=== PATIENT | female | born 1975 | race Caucasian/White ===

== ENCOUNTER 2016-07-02 16:29 | Emergency (ER) | payer MEDICARE | END 2016-07-02 20:30 | disposition home or self-care (01) | LOC: D.ER 16:29 | DX: F11.23 Opioid dependence with withdrawal (principal); R11.2 Nausea with vomiting, unspecified; F41.9 Anxiety disorder, unspecified; M25.50 Pain in unspecified joint; M32.9 Systemic lupus erythematosus, unspecified; G40.909 Epilepsy, unspecified, not intractable, without status epilepticus ==

== ENCOUNTER 2016-12-02 08:04 | Emergency (ER) | payer MEDICARE ==
[2016-12-02 08:41] LABS: BASOPHILS 0.2 % (0-2); EOSINOPHILS 0.5 % (0-7); HEMATOCRIT 51.7 % (36.0-48.0); HEMOGLOBIN 17.6 g/dL (12-16); IMMATURE GRANULOCYTES 0.4 % (0-5); LYMPHOCYTES 21.3 % (15-50); MCH 28.5 pg (26.0-34.0); MCV 83.7 fL (80.0-100.0); MEAN PLATELET VOLUME 10.4 fL (7.4-10.4); MONOCYTES 5.1 % (2-11); NEUTROPHILS 72.5 % (40-80); PLATELET COUNT 432 10x3/uL (130-400); RBC 6.18 10x6/uL (4.00-5.40); RDW 13.1 % (11.5-14.5); WBC 16.9 10x3/uL (4.8-10.8)
[2016-12-02 08:45] LABS: HCG URINE NEGATIVE (NEGATIVE)
[2016-12-02 08:46] LABS: APPEARANCE CLEAR (CLEAR); BILIRUBIN NEGATIVE (NEGATIVE); COLOR STRAW (YELLOW); GLUCOSE NEGATIVE (NEGATIVE); KETONE NEGATIVE (NEGATIVE); LEUKOCYTE ESTERASE NEGATIVE (NEGATIVE); NITRITE NEGATIVE (NEGATIVE); PROTEIN TRACE mg/dL (NEGATIVE); SPECIFIC GRAVITY 1.005 (1.005-1.020); UROBILINOGEN NORMAL (NORMAL)
[2016-12-02 08:48] LABS: CALCIUM 9.9 mg/dL (8.5-10.1)
[2016-12-02 08:49] LABS: UDS - AMPHET NEGATIVE QUAL (NEGATIVE); UDS - BARB NEGATIVE QUAL (NEGATIVE); UDS - BENZO NEGATIVE QUAL (NEGATIVE); UDS - COCAINE NEGATIVE QUAL (NEGATIVE); UDS - METH NEGATIVE QUAL (NEGATIVE); UDS - OPIATE NEGATIVE QUAL (NEGATIVE); UDS - PCP NEGATIVE QUAL (NEGATIVE); UDS - THC NEGATIVE QUAL (NEGATIVE)
== END 2016-12-02 11:57 | disposition short-term general hospital (02) ==
LOC: D.ER 08:04
PROVIDERS: Family Medicine
DX: F41.9 Anxiety disorder, unspecified (principal); F41.0 Panic disorder [episodic paroxysmal anxiety]; M32.9 Systemic lupus erythematosus, unspecified; G40.909 Epilepsy, unspecified, not intractable, without status epilepticus; R45.1 Restlessness and agitation; R44.3 Hallucinations, unspecified; G47.9 Sleep disorder, unspecified; R45.851 Suicidal ideations; F12.90 Cannabis use, unspecified, uncomplicated

== ENCOUNTER 2017-01-11 13:01 | Emergency (ER) | payer MEDICARE ==
[2017-01-11 14:07] LABS: BASOPHILS 0.3 % (0-2); EOSINOPHILS 0.7 % (0-7); HEMATOCRIT 42.4 % (36.0-48.0); HEMOGLOBIN 14.2 g/dL (12-16); IMMATURE GRANULOCYTES 0.3 % (0-5); LYMPHOCYTES 24.4 % (15-50); MCH 28.3 pg (26.0-34.0); MCHC 33.5 g/dL (31.0-37.0); MCV 84.6 fL (80.0-100.0); MEAN PLATELET VOLUME 10.2 fL (7.4-10.4); MONOCYTES 6.3 % (2-11); PLATELET COUNT 358 10x3/uL (130-400); RBC 5.01 10x6/uL (4.00-5.40); RDW 15.1 % (11.5-14.5); WBC 14.7 10x3/uL (4.8-10.8)
[2017-01-11 14:17] LABS: APPEARANCE HAZY (CLEAR); BACTERIA MANY /hpf (NONE SEEN); BILIRUBIN NEGATIVE (NEGATIVE); COLOR YELLOW (YELLOW); GLUCOSE NEGATIVE (NEGATIVE); KETONE MODERATE mg/dL (NEGATIVE); LEUKOCYTE ESTERASE 2+ (NEGATIVE); MUCUS <1+ /lpf (NONE SEEN); NITRITE NEGATIVE (NEGATIVE); PROTEIN TRACE mg/dL (NEGATIVE); RED CELLS - URINE OCC /hpf (0-5); SPECIFIC GRAVITY 1.025 (1.005-1.020)
[2017-01-11 14:38] LABS: UDS - AMPHET NEGATIVE QUAL (NEGATIVE); UDS - BARB NEGATIVE QUAL (NEGATIVE); UDS - BENZO NEGATIVE QUAL (NEGATIVE); UDS - COCAINE NEGATIVE QUAL (NEGATIVE); UDS - METH NEGATIVE QUAL (NEGATIVE); UDS - OPIATE NEGATIVE QUAL (NEGATIVE); UDS - PCP NEGATIVE QUAL (NEGATIVE); UDS - THC POSITIVE QUAL (NEGATIVE)
[2017-01-11 14:38] LABS: ALBUMIN 3.8 g/dL (3.4-5.0); ALKALINE PHOSPHATASE 77 U/L (46-116); ALT (SGPT) 42 U/L (10-68); CALC OSMOLALITY 277 mosm/kg (275-300); CALCIUM 9.4 mg/dL (8.5-10.1); CARBON DIOXIDE 26.3 mmol/L (21.0-32.0); CHLORIDE - SERUM 100 mmol/L (98-107); CREATININE - SERUM 0.8 mg/dL (0.6-1.3); GLUCOSE 109 mg/dL (74-106); PROTEIN - SERUM 8.8 g/dL (6.4-8.2); SODIUM 140 mmol/L (136-145); UREA NITROGEN 8 mg/dL (7-18); eGFR NON AFRICAN AMERICAN 84 mL/min (90-120)
[2017-01-11 14:53] LABS: POTASSIUM - SERUM 2.9 mmol/L (3.5-5.1)
== END 2017-01-11 17:59 | disposition short-term general hospital (02) ==
LOC: D.ER 13:01
PROVIDERS: Emergency Medicine
DX: F23 Brief psychotic disorder (principal); F17.200 Nicotine dependence, unspecified, uncomplicated

== ENCOUNTER 2017-06-21 20:15 | Emergency (ER) | payer MEDICARE | END 2017-06-21 22:31 | disposition home or self-care (01) | LOC: D.ER 20:15 | DX: H66.91 Otitis media, unspecified, right ear (principal); H92.01 Otalgia, right ear ==

== ENCOUNTER 2018-03-25 12:05 | Emergency (ER) | payer MEDICARE ==
[~2018-03-25] VITALS: Ht 170.2 cm; Wt 102.1 kg
[2018-03-25 12:21] VITALS: BP 132/098; Ht 170.2 cm; Wt 102.1 kg
[2018-03-25] MEDS ORDERED: TOPAMAX200 MG PO (12:25)
[2018-03-25] MEDS ORDERED: ZANAFLEX4 MG PO (12:25)
[2018-03-25] MEDS ORDERED: CATAPRES0.1 MG PO (12:26)
[2018-03-25] MEDS ORDERED: ZESTRIL40 MG PO (12:26)
[2018-03-25] MEDS ORDERED: SYNTHROID112 MCG PO (12:26)
[2018-03-25] MEDS ORDERED: HALDOL5 MG PO (12:27)
[2018-03-25] MEDS ORDERED: TORADOL10 MG PO (13:56)
== END 2018-03-25 14:32 | disposition home or self-care (01) ==
LOC: D.ER 12:05
DX: S69.92XA Unspecified injury of left wrist, hand and finger(s), initial encounter (principal); W18.30XA Fall on same level, unspecified, initial encounter; Y93.89 Activity, other specified; Y92.019 Unspecified place in single-family (private) house as the place of occurrence of the external cause; G40.909 Epilepsy, unspecified, not intractable, without status epilepticus; M32.9 Systemic lupus erythematosus, unspecified; F17.200 Nicotine dependence, unspecified, uncomplicated

== ENCOUNTER 2018-11-11 04:52 | Emergency (ER) | payer MEDICARE ==
[~2018-11-11] VITALS: Ht 170.2 cm; Wt 120.5 kg
[~2018-11-11 04:52] MED LIST: CATAPRES0.1 MG PO; HALDOL5 MG PO; SYNTHROID112 MCG PO; TOPAMAX200 MG PO; TORADOL10 MG PO; ZANAFLEX4 MG PO; ZESTRIL40 MG PO
[2018-11-11 04:58] VITALS: Ht 170.2 cm; Wt 120.5 kg
--- NOTE | 2018-11-11 05:28 | NUR ---
DR CARBAJAL NOTIFIED AND REVIEWED PT BEHAVIOR AND ASSESSMENT RESULTS. PT IS A LOW RISK PER DOCTOR CARBAJAL. DR CARBAJAL STATED TO GIVE RESOURCES TO PT AT TIME OF DISCHARGE. NO FURUTHER ORDERS AT THIS TIME. RESOURCES REVIEWED WITH PT AND SHE VERBALIZED UNDERSTANDING.
[2018-11-11] MEDS ORDERED: CLEOCIN HCL300 MG PO (05:42)
[2018-11-11] MEDS ORDERED: TORADOL10 MG PO (05:42)
[2018-11-11 06:14] VITALS: BP 145/99
== END 2018-11-11 06:21 | disposition home or self-care (01) ==
LOC: D.ER 04:52
DX: K04.7 Periapical abscess without sinus (principal); K02.9 Dental caries, unspecified

== ENCOUNTER 2020-01-12 09:43 | Inpatient (IN) | payer MEDICARE ==
[~2020-01-12] VITALS: Ht 167.6 cm; Wt 133.0 kg
--- NOTE | ~2020-01-12 | OP ---
PATIENT NAME: PAN CRUZ MEDICAL RECORD: [id number] :77 LOCATION:[facility] ADMISSION DATE:01/12/20 SURGEON: SORAYA SUMMERS MD DATE OF OPERATION: 01/13/2020 PREOPERATIVE DIAGNOSIS: Abscess of the abdominal wall (left side of the panniculus). POSTOPERATIVE DIAGNOSIS: Abscess of the abdominal wall (left side of the panniculus). Please see dimensions below. PROCEDURES: Excisional debridement of abdominal wall abscess. This abscess was completely extraperitoneal. The debridement was a sharp debridement back to viable bleeding tissue. The dimensions of the debridement, including margins, measured 4.2 cm x 4.1 cm. The depths of the wound was 3.0 cm. The debridement tissues included skin and subcutaneous tissue as well as abscess cavity. Marsupialization of the wound. SURGEON: Soraya Summers MD POWDER COAT PAINTER: None. BLOOD LOSS: 30 cc. ANESTHESIA: General. COMPLICATIONS: None. The risks, possible complications and alternatives to the procedure were explained to the patient. She elects to proceed. OPERATIVE COURSE: The patient was conveyed to the operating room electively on 01/13/2020. General anesthesia was induced by the anesthesia staff. The abdomen was sterilely prepped and draped. A roughly circular incision was accomplished around the previous incision and drainage site. This incision and drainage had been performed in the Emergency Room and the site was packed. I excised all of the indurated and infected material in a piecemeal fashion. I excised back to viable bleeding tissue. Hemostasis was achieved with electrocautery. I irrigated the wound with hydrogen peroxide. Dimensions were obtained. I then marsupialized the wound with a running locking 3-0 Vicryl Rapide suture. I then packed the wound with a Dakin-soaked Kerlixes. The 2 Kerlixes were tied together. A sterile dressing was applied. The patient was then extubated and conveyed to post-anesthesia care unit where she was in stable condition. The patient's packing will come out on Saturday. Today is Saturday. I will plan that she will be dismissed home on Saturday on oral antibiotics as well. Hopefully, packings will not need to be performed once she is dismissed home. TRANSINT:[id number] Voice Confirmation ID: [id number] DOCUMENT ID: [id number] OPERATIVE REPORT [id number] PAN CRUZ ROBERT MD CC: JENNIE BACA MD [phone] DICTATION DATE: 01/13/20 105 SPACE AND MISSILE OPERATIONS: 01/13/20 1242 ADM IN [place] [id number] [place] [id number]
--- NOTE | 2020-01-12 08:45 | NUR ---
I have reviewed this patient and I concur with the Shift Assessment completed by the Licensed Practical Nurse today this shift.
[~2020-01-12 09:43] MED LIST changes: +CLEOCIN HCL300 MG PO
[2020-01-12] MEDS ORDERED: KLONOPIN1 MG PO (10:05)
[2020-01-12] MEDS ORDERED: ABILIFY10 MG PO (10:05)
[2020-01-12] MEDS ORDERED: NEURONTIN800 MG PO (10:06)
[2020-01-12 10:43] LABS: BASOPHILS 0.1 % (0-2); EOSINOPHILS 1.9 % (0-7); HEMATOCRIT 46.4 % (36.0-48.0); IMMATURE GRANULOCYTES 0.6 % (0-5); LYMPHOCYTES 16.5 % (15-50); MCH 28.2 pg (26.0-34.0); MCHC 32.3 g/dL (31.0-37.0); MCV 87.4 fL (80.0-100.0); MEAN PLATELET VOLUME 9.5 fL (7.4-10.4); MONOCYTES 4.3 % (2-11); NEUTROPHILS 76.6 % (40-80); PLATELET COUNT 302 10x3/uL (130-400); RBC 5.31 10x6/uL (4.00-5.40); RDW 13.6 % (11.5-14.5); WBC 14.5 10x3/uL (4.8-10.8)
[2020-01-12 10:55] LABS: ANION GAP 15.7 mmol/L (8-16); CALCIUM 9.2 mg/dL (8.5-10.1); CARBON DIOXIDE 26.1 mmol/L (21.0-32.0); CREATININE - SERUM 0.9 mg/dL (0.6-1.3); POTASSIUM - SERUM 3.8 mmol/L (3.5-5.1)
--- NOTE | 2020-01-12 12:14 | NUR ---
COVID-19 SWAB OBTAINED AND SENT TO THE LAB. WOUND CULTURE FROM [facility] ABD ABSCESS SENT TO THE LAB.
[2020-01-12 12:15] VITALS: BP 115/77
--- NOTE | 2020-01-12 12:24 | NUR ---
I have reviewed this patient and I concur with the Shift Assessment completed by the Licensed Practical Nurse today this shift.
[2020-01-12 13:17] VITALS: BP 126/79
[2020-01-12 14:12] VITALS: BP 117/84
[2020-01-12 17:06] VITALS: BP 142/81
[2020-01-12 17:25] LABS: APTT 26.8 SECONDS (22.8-39.4); INR 0.91 (0.85-1.17); PROTIME 12.3 SECONDS (11.6-15.0)
[2020-01-12 20:00] VITALS: BP 135/80
--- NOTE | 2020-01-12 21:00 | NUR ---
A&O X 4. AMBULATES INDEPENDENTLY. CONSENTS SIGNED AND IN CHART. HIBICLENS PERFORMED. EKG PERFORMED- READS ABNORMAL. DRESSING TO LEFT LOWER ABDOMEN FALLING OFF. SEROUS SANGUINEOUS NOTED. SKIN SURROUNDING PACKED ABCESS IS RED. REDRESSED WITH ABD PAD. NO FURTHER NEEDS NOTED, CTM
[2020-01-12 23:10] LABS: BILIRUBIN NEGATIVE (NEGATIVE); KETONE NEGATIVE (NEGATIVE); NITRITE NEGATIVE (NEGATIVE); UROBILINOGEN NORMAL (NORMAL)
--- NOTE | 2020-01-12 23:50 | NUR ---
I have reviewed this patient and I concur with the Shift Assessment completed by the Licensed Practical Nurse today this shift.
[2020-01-13] VITALS: BP 125/80
[2020-01-13 04:00] VITALS: BP 131/81
[2020-01-13 05:03] LABS: BASOPHILS 0.2 % (0-2); EOSINOPHILS 2.7 % (0-7); HEMATOCRIT 44.6 % (36.0-48.0); HEMOGLOBIN 14.1 g/dL (12-16); IMMATURE GRANULOCYTES 0.4 % (0-5); LYMPHOCYTES 21.8 % (15-50); MCHC 31.6 g/dL (31.0-37.0); MCV 88.7 fL (80.0-100.0); MEAN PLATELET VOLUME 9.6 fL (7.4-10.4); MONOCYTES 5.5 % (2-11); NEUTROPHILS 69.4 % (40-80); PLATELET COUNT 292 10x3/uL (130-400); RBC 5.03 10x6/uL (4.00-5.40); RDW 13.9 % (11.5-14.5)
[2020-01-13 05:20] LABS: WBC 10.8 10x3/uL (4.8-10.8)
[2020-01-13 05:25] LABS: ALBUMIN 3.2 g/dL (3.4-5.0); ALKALINE PHOSPHATASE 114 U/L (30-120); ALT (SGPT) 42 U/L (10-68); BILIRUBIN - TOTAL 0.31 mg/dL (0.2-1.3); CALC OSMOLALITY 277 mosm/kg (275-300); CALCIUM 9.1 mg/dL (8.5-10.1); CARBON DIOXIDE 30.4 mmol/L (21.0-32.0); CHLORIDE - SERUM 101 mmol/L (98-107); CREATININE - SERUM 0.8 mg/dL (0.6-1.3); GLUCOSE 116 mg/dL (74-106); MAGNESIUM - SERUM 2.2 mg/dL (1.8-2.4); POTASSIUM - SERUM 3.9 mmol/L (3.5-5.1); PROTEIN - SERUM 7.6 g/dL (6.4-8.2); SODIUM 139 mmol/L (136-145); eGFR NON AFRICAN AMERICAN 83 mL/min (90-120)
[2020-01-13 05:31] LABS: UREA NITROGEN 11 mg/dL (7-18)
[2020-01-13 09:36] VITALS: BP 141/95
[2020-01-13 11:44] VITALS: BP 99/63
[2020-01-13 13:05] VITALS: Ht 167.6 cm; Wt 133.0 kg
--- NOTE | 2020-01-13 18:01 | NUR ---
I have reviewed this patient and I concur with the Shift Assessment completed by the Licensed Practical Nurse today this shift.
[2020-01-13 18:21] VITALS: BP 132/68
[2020-01-13 20:00] VITALS: BP 110/73
[2020-01-14] VITALS: BP 105/69
[2020-01-14 04:00] VITALS: BP 135/73
[2020-01-14 05:50] LABS: BASOPHILS 0.1 % (0-2); EOSINOPHILS 0.1 % (0-7); HEMATOCRIT 42.9 % (36.0-48.0); HEMOGLOBIN 13.5 g/dL (12-16); IMMATURE GRANULOCYTES 0.5 % (0-5); LYMPHOCYTES 12.1 % (15-50); MCH 28.4 pg (26.0-34.0); MCHC 31.5 g/dL (31.0-37.0); MCV 90.1 fL (80.0-100.0); MEAN PLATELET VOLUME 9.7 fL (7.4-10.4); MONOCYTES 3.9 % (2-11); NEUTROPHILS 83.3 % (40-80); PLATELET COUNT 331 10x3/uL (130-400); RBC 4.76 10x6/uL (4.00-5.40); RDW 13.7 % (11.5-14.5)
[2020-01-14 06:14] LABS: WBC 16.1 10x3/uL (4.8-10.8)
[2020-01-14 06:31] LABS: ALBUMIN 3.1 g/dL (3.4-5.0); ALKALINE PHOSPHATASE 150 U/L (30-120); BILIRUBIN - TOTAL 0.16 mg/dL (0.2-1.3); CALC OSMOLALITY 280 mosm/kg (275-300); CALCIUM 8.9 mg/dL (8.5-10.1); CARBON DIOXIDE 28.1 mmol/L (21.0-32.0); CHLORIDE - SERUM 102 mmol/L (98-107); CREATININE - SERUM 0.8 mg/dL (0.6-1.3); GLUCOSE 146 mg/dL (74-106); MAGNESIUM - SERUM 2.2 mg/dL (1.8-2.4); POTASSIUM - SERUM 4.3 mmol/L (3.5-5.1); PROTEIN - SERUM 7.3 g/dL (6.4-8.2); SODIUM 139 mmol/L (136-145); UREA NITROGEN 13 mg/dL (7-18); eGFR NON AFRICAN AMERICAN 83 mL/min (90-120)
[2020-01-14 06:33] LABS: ALT (SGPT) 78 U/L (10-68)
[2020-01-14 08:41] VITALS: BP 109/80
--- NOTE | 2020-01-14 10:54 | NUR ---
I have reviewed this patient and I concur with the Shift Assessment completed by the Licensed Practical Nurse today this shift.
[2020-01-14 17:59] VITALS: BP 126/70
[2020-01-14 20:00] VITALS: BP 112/65
--- NOTE | 2020-01-14 21:46 | NUR ---
PT C/O LEFT FOREARM IV TENDER AND BURNING. REMOVED IV CATHETER IN TACT. 22 G IV RESITED TO LEFT FOREARM BY JOAN RAMOS. RESUMED IV FLUIDS AND HUNG VANCOMYCIN. DRESSING TO [facility] C/D/I. CARDIOLOGY TECH FOR PAIN CONTROL. NO OTHER NEEDS. WILL REASSESS AND CONTINUE TO MONITOR.
[2020-01-14 23:42] VITALS: BP 113/65
[2020-01-15 05:22] LABS: BASOPHILS 0.4 % (0-2); EOSINOPHILS 0.9 % (0-7); HEMATOCRIT 42.8 % (36.0-48.0); HEMOGLOBIN 13.1 g/dL (12-16); IMMATURE GRANULOCYTES 0.7 % (0-5); MCH 27.7 pg (26.0-34.0); MCHC 30.6 g/dL (31.0-37.0); MCV 90.5 fL (80.0-100.0); MEAN PLATELET VOLUME 9.4 fL (7.4-10.4); MONOCYTES 5.2 % (2-11); NEUTROPHILS 61.8 % (40-80); PLATELET COUNT 296 10x3/uL (130-400); RBC 4.73 10x6/uL (4.00-5.40); RDW 13.9 % (11.5-14.5); WBC 11.5 10x3/uL (4.8-10.8)
[2020-01-15 05:34] LABS: ALBUMIN 3.1 g/dL (3.4-5.0); ALKALINE PHOSPHATASE 114 U/L (30-120); BILIRUBIN - TOTAL 0.25 mg/dL (0.2-1.3); CALC OSMOLALITY 278 mosm/kg (275-300); CALCIUM 8.7 mg/dL (8.5-10.1); CARBON DIOXIDE 30.3 mmol/L (21.0-32.0); CHLORIDE - SERUM 103 mmol/L (98-107); CREATININE - SERUM 0.8 mg/dL (0.6-1.3); GLUCOSE 114 mg/dL (74-106); POTASSIUM - SERUM 4.1 mmol/L (3.5-5.1); PROTEIN - SERUM 7.1 g/dL (6.4-8.2); SODIUM 139 mmol/L (136-145); UREA NITROGEN 12 mg/dL (7-18); eGFR NON AFRICAN AMERICAN 83 mL/min (90-120)
[2020-01-15 05:41] LABS: ALT (SGPT) 55 U/L (10-68)
--- NOTE | 2020-01-15 08:27 | MORECARE ---
CASE MANAGEMENT DISCHARGE SUMMARY PATIENT: PAN CRUZ UNIT: [id number] ADM DATE: 01/12/20 AGE: 44 : [birth year] SEX: F ROOM/BED: D.2205 AUTHOR: EBONY RUELAS PHYSICIAN: REFERRING PHYSICIAN: JENNIE BACA MD DATE OF SERVICE: 01/15/20 Discharge Plan Patient Name: PAN CRUZ Facility: [facility]:[place] : 1975 Planned Disposition: Home with Home Health Anticipated Discharge Date: Discharge Date: Expected LOS: Initial Reviewer: [email or web address] Initial Review Date: 01/12/2020 Generated: 01/15/20 9:26 am DCPIA - Discharge Planning Initial Assessment Updated by [email or web address]: Gayathri Barbosa on 01/15/20 8:24 am * Is the patient Alert and Oriented? Yes * How many steps to enter\exit or inside your home? * PCP ANDER * Pharmacy [facility] * Preadmission Environment Home with Family * ADLs Independent * Equipment None * List name and contact numbers for known caregivers / representatives who currently or will assist patient after discharge: ERYN WARE ([place]) [phone] * Verbal permission to speak to the caregivers and representatives has been obtained from the patient. N/A * Community resources currently utilized None * Additional services required to return to the preadmission environment? Yes * Can the patient safely return to the preadmission environment? Yes * Has this patient been hospitalized within the prior 30 days at any hospital? No Patient Name: PAN CRUZ Page [id number] at 0827 All edits/amendments must be made on the electronic document DICTATION DATE: 01/15/20825 APARTMENT MAINTENANCE: J CARLOS 01/15/20825 RPT#: [id number] DC DATE: STATUS: ADM IN [facility] [address] [place] [address] END OF REPORT
--- NOTE | 2020-01-15 08:33 | MORECARE ---
CASE MANAGEMENT DISCHARGE SUMMARY PATIENT: PAN CRUZ UNIT: [id number] ADM DATE: 01/12/20 AGE: 44 : 77 SEX: F ROOM/BED: D.220 AUTHOR: SURAJ,DOC PHYSICIAN: REFERRING PHYSICIAN: JENNIE BACA MD DATE OF SERVICE: 01/15/20 Discharge Plan Patient Name: PAN CRUZ Facility: [facility]:[place] : 1975 Planned Disposition: Home with Home Health Anticipated Discharge Date: Discharge Date: Expected LOS: Initial Reviewer: [email or web address] Initial Review Date: 01/12/2020 Generated: 01/15/20 9:32 am Comments DCP- Discharge Planning Updated by [email or web address]: Gayathri Barbosa on 01/15/20 7:[address] Patient Name: PAN CRUZ Admission Status: ER Accout number: [id number] Admission Date: 01-12-2020 : 1975 Admission Diagnosis:CUTANEOUS ABSCESS OF ABDOMINAL WALL Attending: ANA Current LOS: 3 Anticipated DC Date: Planned Disposition: Home with Home Health Primary Insurance: [employer] CHOICE PPO [facility] Discharge Planning Comments: CM met with patient to complete initial dc planning assessment. CM educated patient on the CM role and verbal consent given by patient to complete assessment. Patient lives at home with a roommate where she states she is independent with her care. At discharge patient plans to return home and feels this is a safe discharge. CM discussed availability of home health, rehab services, and medical equipment. She does not use any DME, she will need home health. SUE with [facility] . She stated that her roommate will help her with her dressing and will also be the one to drive her home. IMM served and signed. Patient denied known discharge needs at this time. CM will continue to follow and will assist as needed with dc plans/needs. Branch Manager Trainee: Gayathri Barbosa DCPIA - Discharge Planning Initial Assessment Updated by [email or web address]: Gayathri Barbosa on 01/15/20 8:24 am * Is the patient Alert and Oriented? Yes * How many steps to enter\exit or inside your home? * PCP ANDER * Pharmacy [facility] * Preadmission Environment Home with Family * ADLs Independent * Equipment None * List name and contact numbers for known caregivers / representatives who currently or will assist patient after discharge: ERYN WAER ([place]) [phone] * Verbal permission to speak to the caregivers and representatives has been obtained from the patient. N/A * Community resources currently utilized None * Additional services required to return to the preadmission environment? Yes * Can the patient safely return to the preadmission environment? Yes * Has this patient been hospitalized within the prior 30 days at any hospital? No Coverage Notice Reviewer: [id number] Barbosa Notice Issued Date-Time: 01/15/2020 7:30 Notice Type: IM Discharge Notice Notice Delivered To: Patient Relationship to Patient: Pillowcase Maker Name: Delivery Method: HAND - Hand Delivered Becca Days: Prior Verbal Notification: Recipient Understood Notice: Yes Recipient Signature: Yes Med Rec Note Co-signed by Attending: Coverage Notice Comment: Reviewer: [id number] Barbosa Notice Issued Date-Time: 01/15/2020 7:30 Notice Type: Patient Choice Letter Notice Delivered To: Patient Relationship to Patient: Pillowcase Maker Name: Delivery Method: HAND - Hand Delivered Becca Days: Prior Verbal Notification: Recipient Understood Notice: Yes Recipient Signature: Yes Med Rec Note Co-signed by Attending: Coverage Notice Comment: sue with [employer] [facility] Last DP export: 01/15/20 7:27 a Patient Name: PAN CRUZ Page [phone] at 0833 All edits/amendments must be made on the electronic document DICTATION DATE: 01/15/20 08 STRIKER OUT: J CARLOS 01/15/20 0833 RPT#: [id number] DC DATE: STATUS: ADM IN [facility] [address] [place] [address] END OF REPORT
--- NOTE | 2020-01-15 08:47 | MORECARE ---
CASE MANAGEMENT DISCHARGE SUMMARY PATIENT: PAN CRUZ UNIT: [id number] ADM DATE: 01/12/20 AGE: 44 : 77 SEX: F ROOM/BED: D.2202 AUTHOR: SURAJ,DOC PHYSICIAN: REFERRING PHYSICIAN: JENNIE BACA MD DATE OF SERVICE: 01/15/20 Discharge Plan Patient Name: PAN CRUZ Facility: [facility]:[place] : 1975 Planned Disposition: Home with Home Health Anticipated Discharge Date: Discharge Date: Expected LOS: Initial Reviewer: [email or web address] Initial Review Date: 01/12/2020 Generated: 01/15/20 9:46 am Comments DCP- Discharge Planning Updated by [email or web address]: Gayathri Barbosa on 01/15/20 7:[address] REFERRAL FAXED TO [facility] AND I SPOKE WITH RAY DCP- Discharge Planning Updated by [email or web address]: Gayathri Barbosa on 01/15/20 7:[address] Patient Name: PAN CRUZ Admission Status: ER Accout number: [id number] Admission Date: 01-12-2020 : 1975 Admission Diagnosis:CUTANEOUS ABSCESS OF ABDOMINAL WALL Attending: ANA Current LOS: 3 Anticipated DC Date: Planned Disposition: Home with Home Health Primary Insurance: [employer] CHOICE PPO [employer] Discharge Planning Comments: CM met with patient to complete initial dc planning assessment. CM educated patient on the CM role and verbal consent given by patient to complete assessment. Patient lives at home with a roommate where she states she is independent with her care. At discharge patient plans to return home and feels this is a safe discharge. CM discussed availability of home health, rehab services, and medical equipment. She does not use any DME, she will need home health. SUE with [facility]. She stated that her roommate will help her with her dressing and will also be the one to drive her home. IMM served and signed. Patient denied known discharge needs at this time. CM will continue to follow and will assist as needed with dc plans/needs. Retail Salesman: Gayathri Barbosa DCPIA - Discharge Planning Initial Assessment Updated by [email or web address]: Gayathri Barbosa on 01/15/20 8:24 am * Is the patient Alert and Oriented? Yes * How many steps to enter\exit or inside your home? * PCP ANDER * Pharmacy [facility] * Preadmission Environment Home with Family * ADLs Independent * Equipment None * List name and contact numbers for known caregivers / representatives who currently or will assist patient after discharge: ERYN WARE ([place]) [phone] * Verbal permission to speak to the caregivers and representatives has been obtained from the patient. N/A * Community resources currently utilized None * Additional services required to return to the preadmission environment? Yes * Can the patient safely return to the preadmission environment? Yes * Has this patient been hospitalized within the prior 30 days at any hospital? No External Providers External Provider: [employer] Next Contact Date: Service Request Date: Service Type: Resolution: Reviewer: Comments: Coverage Notice Reviewer: [id number] Prosper Barbosa Notice Issued Date-Time: 01/15/2020 7:30 Notice Type: IM Discharge Notice Notice Delivered To: Patient Relationship to Patient: Clinical Data Assistant Name: Delivery Method: HAND - Hand Delivered Becca Days: Prior Verbal Notification: Recipient Understood Notice: Yes Recipient Signature: Yes Med Rec Note Co-signed by Attending: Coverage Notice Comment: Reviewer: [email or web address] Prosper Barbosa Notice Issued Date-Time: 01/15/2020 7:30 Notice Type: Patient Choice Letter Notice Delivered To: Patient Relationship to Patient: Clinical Data Assistant Name: Delivery Method: HAND - Hand Delivered Becca Days: Prior Verbal Notification: Recipient Understood Notice: Yes Recipient Signature: Yes Med Rec Note Co-signed by Attending: Coverage Notice Comment: sue with [employer] Last DP export: 01/15/20 7:33 a Patient Name: PAN CRUZ Page 14584 at 0847 All edits/amendments must be made on the electronic document DICTATION DATE: 01/15/20845 REGISTER IN CHANCERY: J CARLOS 01/15/20845 RPT#: [id number] DC DATE: STATUS: ADM IN [facility] [address] [place] [address] END OF REPORT
[2020-01-15 09:07] VITALS: BP 125/80
--- NOTE | 2020-01-15 09:54 | NUR ---
NUTRITION F/U CHART REVIEWED. PT TOLERATING AHA DIET WITH GOOD INTAKE MEALS. WILL CONTINUE TO PROVIDE CURRENT DIET AND MONITOR PO INTAKE. RD FOLLOWING
[2020-01-15 12:31] VITALS: BP 118/63
--- NOTE | 2020-01-15 12:39 | NUR ---
CALL WAS PLACED TO DR. SUMMERS ABOUT CONTINUING PT HAIR CUTTER. REC'D ORDERS TO DC HAIR CUTTER AND START ON NORCO 10 MG EVERY 4 HOURS. C/L IN REACH AT BEDSIDE.
--- NOTE | 2020-01-15 13:30 | NUR ---
DRESSING WAS CHANGED BY [facility] AT THIS TIME. PT TOLERATED WELL. N C/O NOTED OR VOICED. C/L IN REACH AT BEDSIDE.
[2020-01-15] MEDS ORDERED: VIBRAMYCIN 100100 MG PO (14:43)
[2020-01-15] MEDS ORDERED: ULTRAM50 MG PO (14:44)
--- NOTE | 2020-01-15 15:30 | MORECARE ---
CASE MANAGEMENT DISCHARGE SUMMARY PATIENT: PAN CRUZ UNIT: [id number] ADM DATE: 01/12/20 AGE: 44 : 77 SEX: F ROOM/BED: D.2205 AUTHOR: SURAJ,DOC PHYSICIAN: REFERRING PHYSICIAN: JENNIE BACA MD DATE OF SERVICE: 01/15/20 Discharge Plan Patient Name: PAN CRUZ Facility: [facility]:[place] : 1975 Planned Disposition: Home with Home Health Anticipated Discharge Date: Discharge Date: Expected LOS: Initial Reviewer: [email or web address] Initial Review Date: 01/12/2020 Generated: 01/15/20 4:29 pm Comments DCP- Discharge Planning Updated by [email or web address]: Gayathri Barbosa on 01/15/20 2:[address] PATIENT WILL BE DISCHARGING HOME WITH [employer] [facility] TODAY, DR SUMMERS TAUGHT HER WHAT AND HHOW TO DO WOUND CARE AND STATED IT WAS OK FOR HOME HEALTH TO SEE HER ON SATURDAY I HAVE LET RAY KNOW THIS. NURSING WILL SUPPLY HER WITH SOME SUPPLIES TILL CAN SEE HER CM TO FOLLOW NEEDED DCP- Discharge Planning Updated by [email or web address]: Gayathri Barbosa on 01/15/20 7:[address] REFERRAL FAXED TO [employer] [facility] AND I SPOKE WITH RAY DCP- Discharge Planning Updated by [email or web address]: Gayathri Barbosa on 01/15/20 7:[address] Patient Name: PAN CRUZ Admission Status: ER Accout number: [id number] Admission Date: 01-12-2020 : 1975 Admission Diagnosis:CUTANEOUS ABSCESS OF ABDOMINAL WALL Attending: ANA Current LOS: 3 Anticipated DC Date: Planned Disposition: Home with Home Health Primary Insurance: [employer] CHOICE PPO [employer] Discharge Planning Comments: CM met with patient to complete initial dc planning assessment. CM educated patient on the CM role and verbal consent given by patient to complete assessment. Patient lives at home with a roommate where she states she is independent with her care. At discharge patient plans to return home and feels this is a safe discharge. CM discussed availability of home health, rehab services, and medical equipment. She does not use any DME, she will need home health. SUE with [facility] . She stated that her roommate will help her with her dressing and will also be the one to drive her home. IMM served and signed. Patient denied known discharge needs at this time. CM will continue to follow and will assist as needed with dc plans/needs. Metal Expediter: Gayathri Barbosa DCPIA - Discharge Planning Initial Assessment Updated by [email or web address]: Gayathri Barbosa on 01/15/20 8:24 am * Is the patient Alert and Oriented? Yes * How many steps to enter\exit or inside your home? * PCP ANDER * Pharmacy [facility] * Preadmission Environment Home with Family * ADLs Independent * Equipment None * List name and contact numbers for known caregivers / representatives who currently or will assist patient after discharge: ERYN WARE ([place]) [phone] * Verbal permission to speak to the caregivers and representatives has been obtained from the patient. N/A * Community resources currently utilized None * Additional services required to return to the preadmission environment? Yes * Can the patient safely return to the preadmission environment? Yes * Has this patient been hospitalized within the prior 30 days at any hospital? No Coverage Notice Reviewer: [id number] Prosper Barbosa Notice Issued Date-Time: 01/15/2020 7:30 Notice Type: IM Discharge Notice Notice Delivered To: Patient Relationship to Patient: Keyboard Action Assembler Name: Delivery Method: HAND - Hand Delivered Becca Days: Prior Verbal Notification: Recipient Understood Notice: Yes Recipient Signature: Yes Med Rec Note Co-signed by Attending: Coverage Notice Comment: Reviewer: [email or web address] Prosper Barbosa Notice Issued Date-Time: 01/15/2020 7:30 Notice Type: Patient Choice Letter Notice Delivered To: Patient Relationship to Patient: Keyboard Action Assembler Name: Delivery Method: HAND - Hand Delivered Becca Days: Prior Verbal Notification: Recipient Understood Notice: Yes Recipient Signature: Yes Med Rec Note Co-signed by Attending: Coverage Notice Comment: sue with [facility] Last DP export: 01/15/20 7:47 a Patient Name: PAN CRUZ Page [id number] Electronically Signed by EBONY [facility] [place] on 01/15/20 at 1530 All edits/amendments must be made on the electronic document DICTATION DATE: 01/15/20 1524 DATABASE DEVELOPMENT PROJECT MANAGER: J CARLOS 01/15/20 1529 RPT#: [id number] DC DATE: STATUS: ADM IN [facility] [address] [place] [address] END OF REPORT
[2020-01-15] MEDS ORDERED: NICODERM CQ1 EAC3 TOPICAL (15:49)
--- NOTE | 2020-01-15 16:45 | NUR ---
DC HOME AT THIS TIME VOICE UNDEERSTANDING OF DC ORDERS. IV DC.. STABLE CONDITION UPON DEPARTURE.
--- NOTE | 2020-01-18 08:21 | MORECARE ---
CASE MANAGEMENT DISCHARGE SUMMARY PATIENT: PAN CRUZ UNIT: [id number] ADM DATE: 01/12/20 AGE: 44 : 77 SEX: F ROOM/BED: D.2205 AUTHOR: SURAJ,DOC PHYSICIAN: REFERRING PHYSICIAN: JENNIE BACA MD DATE OF SERVICE: 01/18/20 Discharge Plan Patient Name: PAN CRUZ Facility: [facility]:[place] : 1975 Planned Disposition: Home with Home Health Anticipated Discharge Date: Discharge Date: 01/15/2020 Expected LOS: Initial Reviewer: [id number] Initial Review Date: 01/12/2020 Generated: 01/18/20 9:21 am Comments DCP- Discharge Planning Updated by [email or web address]: Gayathri Barbosa on 01/15/20 2:[address] PATIENT WILL BE DISCHARGING HOME WITH [facility] TODAY, DR SUMMERS TAUGHT HER WHAT AND HHOW TO DO WOUND CARE AND STATED IT WAS OK FOR HOME HEALTH TO SEE HER ON SATURDAY I HAVE LET ANDREEA KNOW THIS. NURSING WILL SUPPLY HER WITH SOME SUPPLIES TILL HH CAN SEE HER CM TO FOLLOW NEEDED DCP- Discharge Planning Updated by [email or web address]: Gayathri Barbosa on 01/15/20 7:[address] REFERRAL FAXED TO [facility] AND I SPOKE WITH RAY DCP- Discharge Planning Updated by [email or web address]: Gayathri Barbosa on 01/15/20 7:[address] Patient Name: PAN CRUZ Admission Status: ER Accout number: [id number] Admission Date: 01-12-2020 : 1975 Admission Diagnosis:CUTANEOUS ABSCESS OF ABDOMINAL WALL Attending: ANA Current LOS: 3 Anticipated DC Date: Planned Disposition: Home with Home Health Primary Insurance: [employer] CHOICE PPO [employer] Discharge Planning Comments: CM met with patient to complete initial dc planning assessment. CM educated patient on the CM role and verbal consent given by patient to complete assessment. Patient lives at home with a roommate where she states she is independent with her care. At discharge patient plans to return home and feels this is a safe discharge. CM discussed availability of home health, rehab services, and medical equipment. She does not use any DME, she will need home health. SUE with [facility] . She stated that her roommate will help her with her dressing and will also be the one to drive her home. IMM served and signed. Patient denied known discharge needs at this time. CM will continue to follow and will assist as needed with dc plans/needs. Heel Slugger: Gayathri Barbosa DCPIA - Discharge Planning Initial Assessment Updated by [id number]: Gayathri Barbosa on 01/15/20 8:24 am * Is the patient Alert and Oriented? Yes * How many steps to enter\exit or inside your home? * PCP ANDER * Pharmacy [facility] * Preadmission Environment Home with Family * ADLs Independent * Equipment None * List name and contact numbers for known caregivers / representatives who currently or will assist patient after discharge: ERYN WARE ([place]) [phone] * Verbal permission to speak to the caregivers and representatives has been obtained from the patient. N/A * Community resources currently utilized None * Additional services required to return to the preadmission environment? Yes * Can the patient safely return to the preadmission environment? Yes * Has this patient been hospitalized within the prior 30 days at any hospital? No Coverage Notice Reviewer: [email or web address] Prosper Barbosa Notice Issued Date-Time: 01/15/2020 7:30 Notice Type: IM Discharge Notice Notice Delivered To: Patient Relationship to Patient: Inspector Repairer Name: Delivery Method: HAND - Hand Delivered Becca Days: Prior Verbal Notification: Recipient Understood Notice: Yes Recipient Signature: Yes Med Rec Note Co-signed by Attending: Coverage Notice Comment: Reviewer: [id number] - Gayathri Barbosa Notice Issued Date-Time: 01/15/2020 7:30 Notice Type: Patient Choice Letter Notice Delivered To: Patient Relationship to Patient: Inspector Repairer Name: Delivery Method: HAND - Hand Delivered Becca Days: Prior Verbal Notification: Recipient Understood Notice: Yes Recipient Signature: Yes Med Rec Note Co-signed by Attending: Coverage Notice Comment: sue with [facility] Last DP export: 01/15/20 2:29 p Patient Name: PAN CRUZ Page 46749 at 0821 All edits/amendments must be made on the electronic document DICTATION DATE: 01/18/20820 EARLY MORNING BABYSITTER: DM 01/18/20820 RPT#: [id number] DC DATE:01/15/20 STATUS: DIS IN [facility] [address] [place] [address] END OF REPORT
== END 2020-01-15 16:46 | disposition home health service (06) | DRG 571 ==
LOC: D.ER 09:43 → D.MS 11:51 → D.EDHOLD 11:51 → D.MS 11:57
PROVIDERS: Emergency Medicine; Family Medicine; Surgery; ADMIT Family Medicine; ATTEND Family Medicine
PROC: 0JB80ZZ Excision of Abdomen Subcutaneous Tissue and Fascia, Open Approach (ICD-10-PCS; principal; 2020-01-13 14:30)
DX: L02.211 Cutaneous abscess of abdominal wall (principal); F17.213 Nicotine dependence, cigarettes, with withdrawal; I10 Essential (primary) hypertension; M32.9 Systemic lupus erythematosus, unspecified; E03.9 Hypothyroidism, unspecified; F31.9 Bipolar disorder, unspecified; K43.9 Ventral hernia without obstruction or gangrene; E66.01 Morbid (severe) obesity due to excess calories; F12.90 Cannabis use, unspecified, uncomplicated